=== PATIENT | male | born 1995 | race Caucasian/White ===

== ENCOUNTER 2017-01-18 19:04 | Emergency (ER) | payer OTHER ==
[~2017-01-18] VITALS: Ht 185.4 cm; Wt 86.0 kg
[~2017-01-18 19:04] MED LIST: QUET400T PO
[2017-01-18] MEDS ORDERED: ARIP400S3 IM (19:35)
[2017-01-18] MEDS ORDERED: IBUPROFEN 800 MG TABLET PO ONE (20:15)
[2017-01-18] MEDS ORDERED: SULFAMETHOX/TRIMETH DS 800-160 MG/TABLET PO ONE (20:15)
[2017-01-18 21:00] VITALS: BP 141/79
== END 2017-01-18 21:12 | disposition home or self-care (01) ==
LOC: EMS 19:08
DX: L03.317 Cellulitis of buttock (principal); L02.31 Cutaneous abscess of buttock
CPT/HCPCS: 99283

== ENCOUNTER 2017-03-18 12:30 | Emergency (ER) | payer OTHER ==
[~2017-03-18] VITALS: Ht 185.4 cm; Wt 79.5 kg
[~2017-03-18 12:30] MED LIST changes: +ARIP400S3 IM; -QUET400T PO
[2017-03-18 15:49] VITALS: BP 119/74
[2017-03-18 16:23] LABS: BASOPHILS % (AUTO) 0.6 % (0.0-2.0); HEMATOCRIT 43.7 % (41-53); HEMOGLOBIN 14.9 g/dL (13.5-17.5); LYMPHOCYTES # (AUTO) 1.7 K/uL (1.0-4.8); LYMPHOCYTES % (AUTO) 29.9 % (22.0-44.0); MEAN CORPUSCULAR HGB CONC 34.2 G/dL (31.0-37.0); MEAN CORPUSCULAR VOLUME 91 fL (80-100); MONOCYTES # (AUTO) 0.5 K/uL (0.1-1.0); MONOCYTES % (AUTO) 8.2 % (2.0-9.0); NEUTROPHILS # (AUTO) 3.4 K/uL (1.8-7.7); NEUTROPHILS % (AUTO) 60.3 % (40.0-70.0); PLATELET COUNT (AUTO) 232 K/uL (150-450); RED BLOOD CELL COUNT(AUTO) 4.82 MIL/uL (4.50-5.90); RED CELL DISTRIBUTION WIDTH 12.5 % (11.5-14.5); WHITE BLOOD COUNT (AUTO) 5.6 K/uL (4.5-11.0)
[2017-03-18 16:30] LABS: ANION GAP 7 mmol/L (8-16); CALCIUM, TOTAL 8.9 mg/dL (8.8-10.5); CARBON DIOXIDE 28 mmol/L (22-29); CHLORIDE 106 mmol/L (98-107); GLOMERULAR FILTR. RATE CALC > 60 mL/min (>60); SODIUM SERUM 141 mmol/L (136-145); UREA NITROGEN, BLOOD 7 mg/dL (7-18)
[2017-03-18 16:36] LABS: ALANINE AMINOTRANSFERASE 58 U/L (12-78); ALBUMIN 4.2 g/dL (3.4-5.0); ASPARTATE AMINOTRANSFERASE 64 U/L (15-37); BILIRUBIN,TOTAL 0.7 mg/dL (0.1-1.0); TOTAL PROTEIN, SERUM 7.5 g/dL (6.4-8.2)
== END 2017-03-18 16:22 | disposition home or self-care (01) ==
LOC: EMS 12:33
DX: F12.10 Cannabis abuse, uncomplicated (principal); F20.9 Schizophrenia, unspecified
CPT/HCPCS: 99284

== ENCOUNTER 2017-05-19 17:41 | Emergency (ER) | payer OTHER ==
[~2017-05-19] VITALS: Ht 185.4 cm; Wt 77.3 kg
[2017-05-19] MEDS ORDERED: PERMETHRIN 1% 60 ML LOTION TP ONE (20:30)
[2017-05-19 20:49] VITALS: BP 118/61
== END 2017-05-19 20:50 | disposition home or self-care (01) ==
LOC: EMS 17:42
DX: B86 Scabies (principal)
CPT/HCPCS: 99283

== ENCOUNTER 2017-05-25 21:56 | Emergency (ER) | payer OTHER ==
[~2017-05-25] VITALS: Ht 185.4 cm; Wt 185.0 kg
[2017-05-25 22:01] VITALS: BP 115/81
== END 2017-05-25 22:42 | disposition left against medical advice (07) ==
LOC: EMS 21:57
DX: Z00.8 Encounter for other general examination (principal); F20.9 Schizophrenia, unspecified; Z53.21 Procedure and treatment not carried out due to patient leaving prior to being seen by health care provider

== ENCOUNTER 2017-06-07 08:48 | Inpatient (IN) | payer MEDICAID, OTHER ==
[~2017-06-07] VITALS: Ht 185.4 cm; Wt 67.2 kg
[2017-06-07 11:07] LABS: BASOPHILS # (AUTO) 0.02 K/uL (0.00-0.20); BASOPHILS % (AUTO) 0.3 % (0.0-2.0); EOSINOPHILS # (AUTO) 0.29 K/uL (0.00-0.70); EOSINOPHILS % (AUTO) 4.44 % (1.0-6.0); HEMATOCRIT 42.6 % (41-53); HEMOGLOBIN 14.5 g/dL (13.5-17.5); LYMPHOCYTES # (AUTO) 1.8 K/uL (1.0-4.8); LYMPHOCYTES % (AUTO) 28.2 % (22.0-44.0); MEAN CORPUSCULAR HEMOGLOBIN 30.9 pg (26.0-34.0); MEAN CORPUSCULAR HGB CONC 33.9 G/dL (31.0-37.0); MEAN CORPUSCULAR VOLUME 91 fL (80-100); MONOCYTES # (AUTO) 0.6 K/uL (0.1-1.0); MONOCYTES % (AUTO) 8.6 % (2.0-9.0); NEUTROPHILS # (AUTO) 3.8 K/uL (1.8-7.7); NEUTROPHILS % (AUTO) 58.5 % (40.0-70.0); PLATELET COUNT (AUTO) 238 K/uL (150-450); RED BLOOD CELL COUNT(AUTO) 4.68 MIL/uL (4.50-5.90); RED CELL DISTRIBUTION WIDTH 13.1 % (11.5-14.5)
[2017-06-07 11:23] LABS: ANION GAP 9 mmol/L (8-16); CALCIUM, TOTAL 8.5 mg/dL (8.8-10.5); CARBON DIOXIDE 26 mmol/L (22-29); CHLORIDE 107 mmol/L (98-107); CREATININE 0.82 mg/dL (0.60-1.30); GLOMERULAR FILTR. RATE CALC > 60 mL/min (>60); GLUCOSE,RANDOM 84 mg/dL (70-110); POTASSIUM 4.1 mmol/L (3.5-5.1); SODIUM SERUM 142 mmol/L (136-145); UREA NITROGEN, BLOOD 13 mg/dL (7-18)
[2017-06-07 11:26] LABS: ALANINE AMINOTRANSFERASE 30 U/L (12-78); ALBUMIN 4.1 g/dL (3.4-5.0); ALKALINE PHOSPHATASE 100 U/L (46-116); ASPARTATE AMINOTRANSFERASE 19 U/L (15-37); BILIRUBIN,TOTAL 0.6 mg/dL (0.1-1.0); TOTAL PROTEIN, SERUM 7.2 g/dL (6.4-8.2)
[2017-06-07] MEDS ORDERED: BACITRACIN 0.9 GM PACKET OINTMENT TP ONE (11:45)
[2017-06-07] MEDS ORDERED: ZOLPIDEM TARTRATE 10 MG TABLET PO PRN (12:15)
[2017-06-07] MEDS ORDERED: HALOPERIDOL 5 MG TABLET PO ONE (12:30)
[2017-06-07] MEDS ORDERED: LORazepam 2 MG TABLET PO ONE (12:30)
[2017-06-07 13:26] LABS: AMPHET/METH SCREEN,URINE NEGATIVE (NEGATIVE); BARBITURATE SCREEN, URINE NEGATIVE (NEGATIVE); BENZODIAZEPINES SCREEN,URINE NEGATIVE (NEGATIVE); CANNABINOID SCREEN,URINE NEGATIVE (NEGATIVE); COCAINE SCREEN,URINE NEGATIVE (NEGATIVE); METHADONE SCREEN, URINE NEGATIVE (NEGATIVE); OPIATE SCREEN,URINE NEGATIVE (NEGATIVE)
[2017-06-07 13:27] LABS: PHENCYCLIDINE SCREEN,URINE NEGATIVE (NEGATIVE)
[2017-06-07 14:52] VITALS: BP 115/87
[2017-06-07 14:54] VITALS: BP 115/87
[2017-06-07] MEDS ORDERED: PNEUMOCOCCAL VACCINE POLYVALENT 0.5 ML VIAL [PPSV23] IM ONE (19:00)
[2017-06-07] MEDS ORDERED: INFLUENZA VIRUS VACCINE QVS 2017-18 (3YR+)/PF 60 MCG/0.5 ML SYRINGE IM ONE (19:00)
[2017-06-07] MEDS ORDERED: IBUPROFEN 400 MG TABLET PO PRN (20:30)
[2017-06-07] MEDS ORDERED: ACETAMINOPHEN 325 MG TABLET PO PRN (20:30)
[2017-06-08 07:17] VITALS: BP 108/76
[2017-06-08 08:42] VITALS: BP 128/74
[2017-06-08 08:55] LABS: CHOL/HDL RATIO 2.3 (4.2-7.3); THYROID STIMULATING HORMONE 0.36 uIU/mL (0.36-3.74)
[2017-06-08 09:10] LABS: HEMOGLOBIN A1C 4.9 % (4.5-6.2)
[2017-06-08] MEDS: LORazepam 2 MG TABLET PO PRN ×2 (11:24→20:13)
[2017-06-08] MEDS: HALOPERIDOL 5 MG TABLET PO PRN ×2 (11:24→20:13)
[2017-06-08] MEDS ORDERED: PETROLATUM,WHITE 71 GM JELLY TP PRN (16:45)
[2017-06-08] MEDS ORDERED: MAGNESIUM HYDROXIDE SUSPENSION 30 ML UDCUP PO PRN (16:45)
[2017-06-08] MEDS ORDERED: MAG HYDROX/AL HYDROX/SIMETH ES 30 ML SUSPENSION UDCUP PO PRN (16:45)
[2017-06-08] MEDS ORDERED: BACITRACIN 28.4 GM OINTMENT TP PRN (16:45)
[2017-06-08] MEDS ORDERED: ONDANSETRON HCL 4 MG TABLET PO PRN (16:45)
[2017-06-08] MEDS ORDERED: BENZOCAINE/MENTHOL LOZENGE [8 LOZENGES/PACKET] MM PRN (16:45)
[2017-06-08] MEDS ORDERED: CloNIDine HCL 0.1 MG TABLET PO PRN (16:45)
[2017-06-08] MEDS ORDERED: ALBUTEROL SULFATE HFA 90 MCG/PUFF 8 GM INHALER IH PRN (16:45)
[2017-06-08] MEDS ORDERED: LOPERAMIDE HCL 2 MG CAPSULE PO PRN (16:45)
[2017-06-08 17:00] VITALS: BP 129/84
[2017-06-08] MEDS ORDERED: HYDROCORTISONE 1% 30 GM OINTMENT TP PRN (19:45)
[2017-06-09] MEDS: ARIPiprazole 15 MG TABLET PO SCH (08:50)
[2017-06-09] MEDS: LORazepam 2 MG TABLET PO PRN ×2 (08:50→16:10)
[2017-06-09] MEDS: OMEPRAZOLE 20 MG CAPSULE PO SCH (08:50)
[2017-06-09 08:57] VITALS: BP 121/94
[2017-06-09] MEDS ORDERED: DOCUSATE SODIUM 100 MG CAPSULE PO PRN (09:00)
[2017-06-09] MEDS ORDERED: DOCUSATE SODIUM 100 MG CAPSULE PO SCH (09:00)
[2017-06-09] MEDS: HALOPERIDOL 5 MG TABLET PO PRN (16:11)
[2017-06-09 16:32] VITALS: BP 129/87
[2017-06-10 01:32] VITALS: BP 134/87
[2017-06-10] MEDS: ARIPiprazole 15 MG TABLET PO SCH (08:05)
[2017-06-10] MEDS: OMEPRAZOLE 20 MG CAPSULE PO SCH (08:06)
[2017-06-10] MEDS ORDERED: ARIP15TA2 PO ×2 (08:27→08:48)
[2017-06-10] MEDS ORDERED: VITAD1000 PO (08:49)
[2017-06-10] MEDS ORDERED: OMEP20 PO (08:49)
[2017-06-10] MEDS ORDERED: CHOLECALCIFEROL (VIT D3) 1,000 UNITS TABLET PO SCH (09:00)
[2017-06-10 09:58] VITALS: BP 123/54
== END 2017-06-10 10:45 | disposition home or self-care (01) | DRG 750 ==
LOC: EMS 08:49 → 3EI 13:22
PROVIDERS: ADMIT Psychiatry & Neurology Child & Adolescent Psychiatry; ATTEND Psychiatry & Neurology Child & Adolescent Psychiatry
DX: F20.0 Paranoid schizophrenia (principal); E55.9 Vitamin D deficiency, unspecified; F41.9 Anxiety disorder, unspecified; F12.10 Cannabis abuse, uncomplicated; G47.00 Insomnia, unspecified; K59.00 Constipation, unspecified; Z28.21 Immunization not carried out because of patient refusal
CPT/HCPCS: 82306; 83036; 84443; 90471; 99285; G0480

== ENCOUNTER 2017-06-21 07:54 | Inpatient (IN) | payer MEDICAID, OTHER ==
[~2017-06-21] VITALS: Ht 185.4 cm; Wt 69.9 kg
[~2017-06-21 07:54] MED LIST changes: +ARIP15TA2 PO; -ARIP400S3 IM; +OMEP20 PO; +VITAD1000 PO
[2017-06-21] MEDS ORDERED: HALOPERIDOL 5 MG TABLET PO ONE (08:30)
[2017-06-21] MEDS ORDERED: LORazepam 2 MG TABLET PO ONE (08:30)
[2017-06-21 08:46] LABS: AMPHET/METH SCREEN,URINE NEGATIVE (NEGATIVE); BARBITURATE SCREEN, URINE NEGATIVE (NEGATIVE); BENZODIAZEPINES SCREEN,URINE NEGATIVE (NEGATIVE); CANNABINOID SCREEN,URINE POSITIVE (NEGATIVE); COCAINE SCREEN,URINE NEGATIVE (NEGATIVE); METHADONE SCREEN, URINE NEGATIVE (NEGATIVE); OPIATE SCREEN,URINE NEGATIVE (NEGATIVE)
[2017-06-21 08:51] LABS: BASOPHILS # (AUTO) 0.03 K/uL (0.00-0.20); BASOPHILS % (AUTO) 0.5 % (0.0-2.0); EOSINOPHILS # (AUTO) 0.18 K/uL (0.00-0.70); EOSINOPHILS % (AUTO) 2.45 % (1.0-6.0); HEMATOCRIT 47.4 % (41-53); HEMOGLOBIN 16.2 g/dL (13.5-17.5); LYMPHOCYTES # (AUTO) 1.4 K/uL (1.0-4.8); LYMPHOCYTES % (AUTO) 19.4 % (22.0-44.0); MEAN CORPUSCULAR HEMOGLOBIN 31.3 pg (26.0-34.0); MEAN CORPUSCULAR HGB CONC 34.1 G/dL (31.0-37.0); MEAN CORPUSCULAR VOLUME 92 fL (80-100); MONOCYTES # (AUTO) 0.5 K/uL (0.1-1.0); MONOCYTES % (AUTO) 6.2 % (2.0-9.0); NEUTROPHILS # (AUTO) 5.3 K/uL (1.8-7.7); NEUTROPHILS % (AUTO) 71.5 % (40.0-70.0); PLATELET COUNT (AUTO) 310 K/uL (150-450); RED BLOOD CELL COUNT(AUTO) 5.16 MIL/uL (4.50-5.90)
[2017-06-21 08:53] LABS: PHENCYCLIDINE SCREEN,URINE NEGATIVE (NEGATIVE)
[2017-06-21 08:57] LABS: ANION GAP 10 mmol/L (8-16); CALCIUM, TOTAL 9.3 mg/dL (8.8-10.5); CARBON DIOXIDE 28 mmol/L (22-29); CHLORIDE 102 mmol/L (98-107); CREATININE 0.94 mg/dL (0.60-1.30); GLOMERULAR FILTR. RATE CALC > 60 mL/min (>60); GLUCOSE,RANDOM 85 mg/dL (70-110); POTASSIUM 3.8 mmol/L (3.5-5.1); SODIUM SERUM 140 mmol/L (136-145); UREA NITROGEN, BLOOD 21 mg/dL (7-18)
[2017-06-21 09:03] LABS: ALANINE AMINOTRANSFERASE 42 U/L (12-78); ALBUMIN 4.8 g/dL (3.4-5.0); ALKALINE PHOSPHATASE 114 U/L (46-116); ASPARTATE AMINOTRANSFERASE 28 U/L (15-37); BILIRUBIN,TOTAL 0.7 mg/dL (0.1-1.0); TOTAL PROTEIN, SERUM 8.6 g/dL (6.4-8.2)
[2017-06-21 14:27] VITALS: BP 116/76
[2017-06-21] MEDS ORDERED: INFLUENZA VIRUS VACCINE QVS 2017-18 (3YR+)/PF 60 MCG/0.5 ML SYRINGE IM ONE (15:00)
[2017-06-22 05:00] VITALS: BP 122/77
[2017-06-22] MEDS: LORazepam 2 MG TABLET PO PRN ×2 (07:33→16:57)
[2017-06-22] MEDS: HALOPERIDOL 5 MG TABLET PO PRN ×2 (07:33→16:57)
[2017-06-22 08:08] VITALS: BP 107/68
[2017-06-22 08:59] LABS: CHOL/HDL RATIO 2.5 (4.2-7.3)
[2017-06-22 09:37] VITALS: BP 125/83
[2017-06-22] MEDS: ARIPiprazole 15 MG TABLET PO SCH (10:06)
[2017-06-22 16:00] VITALS: BP 116/66
[2017-06-22] MEDS ORDERED: ACETAMINOPHEN 325 MG TABLET PO PRN (20:45)
[2017-06-22] MEDS ORDERED: IBUPROFEN 400 MG TABLET PO PRN (20:45)
[2017-06-23 04:41] VITALS: BP 109/85
[2017-06-23 08:16] VITALS: BP 115/63
[2017-06-23] MEDS: OMEPRAZOLE 20 MG CAPSULE PO SCH (08:45)
[2017-06-23] MEDS: ARIPiprazole 15 MG TABLET PO SCH (08:45)
[2017-06-23] MEDS: CHOLECALCIFEROL (VIT D3) 1,000 UNITS TABLET PO SCH (08:45)
[2017-06-23] MEDS: LORazepam 2 MG TABLET PO PRN ×2 (08:45→16:26)
[2017-06-23] MEDS: HALOPERIDOL 5 MG TABLET PO PRN ×2 (09:09→16:26)
[2017-06-23 16:00] VITALS: BP 130/75
[2017-06-23] MEDS: NYSTATIN 30 GM OINTMENT TP SCH ×2 (17:00→20:58)
[2017-06-24 01:17] VITALS: BP 128/90
[2017-06-24 08:13] VITALS: BP 113/75
[2017-06-24] MEDS: ARIPiprazole 15 MG TABLET PO SCH (08:56)
[2017-06-24] MEDS: OMEPRAZOLE 20 MG CAPSULE PO SCH (08:56)
[2017-06-24] MEDS: CHOLECALCIFEROL (VIT D3) 1,000 UNITS TABLET PO SCH (08:56)
[2017-06-24] MEDS: NYSTATIN 30 GM OINTMENT TP SCH ×2 (08:56→16:31)
[2017-06-24] MEDS: LORazepam 2 MG TABLET PO PRN ×2 (08:57→16:31)
[2017-06-24] MEDS: HALOPERIDOL 5 MG TABLET PO PRN ×2 (09:42→16:31)
[2017-06-24 16:00] VITALS: BP 116/70
[2017-06-25 00:56] VITALS: BP 117/80
[2017-06-25 08:06] VITALS: BP 129/77
[2017-06-25] MEDS: NYSTATIN 30 GM OINTMENT TP SCH ×2 (08:27→16:30)
[2017-06-25] MEDS: ARIPiprazole 15 MG TABLET PO SCH (08:27)
[2017-06-25] MEDS: OMEPRAZOLE 20 MG CAPSULE PO SCH (08:27)
[2017-06-25] MEDS: CHOLECALCIFEROL (VIT D3) 1,000 UNITS TABLET PO SCH (08:27)
[2017-06-25 16:06] VITALS: BP 129/81
[2017-06-25] MEDS: LORazepam 2 MG TABLET PO PRN ×2 (16:29→20:42)
[2017-06-25] MEDS: HALOPERIDOL 5 MG TABLET PO PRN ×2 (16:29→20:42)
[2017-06-25] MEDS: ZOLPIDEM TARTRATE 10 MG TABLET PO PRN (20:42)
[2017-06-26 05:34] VITALS: BP 124/80
[2017-06-26] MEDS: CHOLECALCIFEROL (VIT D3) 1,000 UNITS TABLET PO SCH (09:06)
[2017-06-26] MEDS: OMEPRAZOLE 20 MG CAPSULE PO SCH (09:06)
[2017-06-26] MEDS: ARIPiprazole 15 MG TABLET PO SCH (09:06)
[2017-06-26] MEDS: NYSTATIN 30 GM OINTMENT TP SCH ×2 (09:06→17:11)
[2017-06-26 09:43] VITALS: BP 128/75
[2017-06-26] MEDS ORDERED: DiphenhydrAMINE HCL 50 MG/ML VIAL ONE (14:34)
[2017-06-26] MEDS ORDERED: HALOPERIDOL LACTATE 5 MG/ML VIAL ONE (14:34)
[2017-06-26] MEDS ORDERED: LORazepam 2 MG/ML VIAL ONE (14:34)
[2017-06-26] MEDS ORDERED: LORazepam 2 MG/ML VIAL IM ONE (15:00)
[2017-06-26] MEDS ORDERED: HALOPERIDOL LACTATE 5 MG/ML VIAL IM ONE (15:00)
[2017-06-26] MEDS ORDERED: DiphenhydrAMINE HCL 50 MG/ML VIAL IM ONE (15:00)
[2017-06-26 16:00] VITALS: BP 110/67
[2017-06-27] MEDS: LORazepam 2 MG TABLET PO PRN ×3 (03:23→16:54)
[2017-06-27] MEDS: HALOPERIDOL 5 MG TABLET PO PRN ×3 (03:23→16:54)
[2017-06-27 06:54] VITALS: BP 121/74
[2017-06-27 08:11] VITALS: BP 131/66
[2017-06-27] MEDS: ARIPiprazole 15 MG TABLET PO SCH (08:50)
[2017-06-27] MEDS: CHOLECALCIFEROL (VIT D3) 1,000 UNITS TABLET PO SCH (08:50)
[2017-06-27] MEDS: OMEPRAZOLE 20 MG CAPSULE PO SCH (08:50)
[2017-06-27] MEDS: NYSTATIN 30 GM OINTMENT TP SCH ×2 (08:53→16:54)
[2017-06-27 16:27] VITALS: BP 108/67
[2017-06-28] MEDS: ZOLPIDEM TARTRATE 10 MG TABLET PO PRN ×2 (02:27→23:40)
[2017-06-28] MEDS: LORazepam 2 MG TABLET PO PRN ×3 (02:27→14:53)
[2017-06-28 05:30] VITALS: BP 115/71
[2017-06-28 08:11] VITALS: BP 124/81
[2017-06-28] MEDS: CHOLECALCIFEROL (VIT D3) 1,000 UNITS TABLET PO SCH (08:55)
[2017-06-28] MEDS: OMEPRAZOLE 20 MG CAPSULE PO SCH (08:55)
[2017-06-28] MEDS: HALOPERIDOL 5 MG TABLET PO PRN ×2 (08:55→14:53)
[2017-06-28] MEDS: ARIPiprazole 15 MG TABLET PO SCH (08:55)
[2017-06-28] MEDS: NYSTATIN 30 GM OINTMENT TP SCH ×2 (08:57→16:46)
[2017-06-28] MEDS ORDERED: DiphenhydrAMINE HCL 50 MG/ML VIAL IM ONE (15:30)
[2017-06-28] MEDS ORDERED: LORazepam 2 MG/ML VIAL IM ONE (15:30)
[2017-06-28] MEDS ORDERED: HALOPERIDOL LACTATE 5 MG/ML VIAL IM ONE (15:30)
[2017-06-28 16:00] VITALS: BP 118/74
[2017-06-29 01:21] VITALS: BP 133/63
[2017-06-29 08:29] VITALS: BP 135/71
[2017-06-29] MEDS: ARIPiprazole 15 MG TABLET PO SCH (09:08)
[2017-06-29] MEDS: CHOLECALCIFEROL (VIT D3) 1,000 UNITS TABLET PO SCH (09:09)
[2017-06-29] MEDS: LORazepam 2 MG TABLET PO PRN ×3 (09:09→17:26)
[2017-06-29] MEDS: HALOPERIDOL 5 MG TABLET PO PRN ×3 (09:09→17:26)
[2017-06-29] MEDS: OMEPRAZOLE 20 MG CAPSULE PO SCH (09:09)
[2017-06-29] MEDS: NYSTATIN 30 GM OINTMENT TP SCH ×2 (09:09→17:06)
[2017-06-29 16:00] VITALS: BP 117/66
[2017-06-30 01:47] VITALS: BP 115/66
[2017-06-30] MEDS: NYSTATIN 30 GM OINTMENT TP SCH ×2 (09:00→16:13)
[2017-06-30] MEDS ORDERED: LORazepam 2 MG/ML VIAL ONE (09:29)
[2017-06-30] MEDS ORDERED: HALOPERIDOL LACTATE 5 MG/ML VIAL ONE (09:30)
[2017-06-30] MEDS ORDERED: DiphenhydrAMINE HCL 50 MG/ML VIAL ONE (09:30)
[2017-06-30] MEDS: CHOLECALCIFEROL (VIT D3) 1,000 UNITS TABLET PO SCH (09:35)
[2017-06-30] MEDS: OMEPRAZOLE 20 MG CAPSULE PO SCH (09:35)
[2017-06-30] MEDS: ARIPiprazole 15 MG TABLET PO SCH (09:35)
[2017-06-30] MEDS ORDERED: LORazepam 2 MG/ML VIAL IM ONE (09:45)
[2017-06-30] MEDS ORDERED: HALOPERIDOL LACTATE 5 MG/ML VIAL IM ONE (09:45)
[2017-06-30] MEDS ORDERED: DiphenhydrAMINE HCL 50 MG/ML VIAL IM ONE (09:45)
[2017-06-30 09:48] VITALS: BP 131/77
[2017-06-30 10:26] VITALS: BP 109/61
[2017-06-30] MEDS: LORazepam 2 MG TABLET PO PRN (16:13)
[2017-06-30 16:57] VITALS: BP 133/78
[2017-07-01] MEDS: ZOLPIDEM TARTRATE 10 MG TABLET PO PRN ×2 (00:01→20:27)
[2017-07-01 05:26] VITALS: BP 120/75
[2017-07-01 08:00] VITALS: BP 144/69
[2017-07-01] MEDS: OMEPRAZOLE 20 MG CAPSULE PO SCH (09:34)
[2017-07-01] MEDS: CHOLECALCIFEROL (VIT D3) 1,000 UNITS TABLET PO SCH (09:34)
[2017-07-01] MEDS: NYSTATIN 30 GM OINTMENT TP SCH ×2 (09:34→16:40)
[2017-07-01] MEDS: ARIPiprazole 15 MG TABLET PO SCH (09:34)
[2017-07-01] MEDS: NICOTINE 7 MG/24 HOUR PATCH TD SCH (12:07)
[2017-07-01] MEDS: LORazepam 2 MG TABLET PO PRN (16:40)
[2017-07-01] MEDS: HALOPERIDOL 5 MG TABLET PO PRN (16:40)
[2017-07-01 16:47] VITALS: BP 111/71
[2017-07-02] VITALS (8 sets, daily range): BP systolic 115–146; BP diastolic 60–82
[2017-07-02] MEDS: HALOPERIDOL 5 MG TABLET PO PRN (02:07)
[2017-07-02] MEDS: LORazepam 2 MG TABLET PO PRN ×2 (02:07→17:20)
[2017-07-02] MEDS: NYSTATIN 30 GM OINTMENT TP SCH ×2 (09:00→17:20)
[2017-07-02] MEDS: CHOLECALCIFEROL (VIT D3) 1,000 UNITS TABLET PO SCH (11:13)
[2017-07-02] MEDS: ARIPiprazole 15 MG TABLET PO SCH (11:13)
[2017-07-02] MEDS: NICOTINE 7 MG/24 HOUR PATCH TD SCH (11:14)
[2017-07-02] MEDS: OMEPRAZOLE 20 MG CAPSULE PO SCH (11:17)
[2017-07-02] MEDS ORDERED: NEOMYCIN/BACITRACIN/POLYMYXIN B 30 GM OINTMENT TP SCH (17:00)
[2017-07-02] MEDS ORDERED: NYST15PO3 TP (17:44)
[2017-07-02] MEDS ORDERED: NEOM1OIN8 TP (17:45)
[2017-07-03 04:52] VITALS: BP 132/81
== END 2017-07-03 07:52 | disposition home or self-care (01) | DRG 750 ==
LOC: EMS 07:55 → B3A 13:40
PROVIDERS: ADMIT Psychiatry & Neurology Child & Adolescent Psychiatry; ATTEND Psychiatry & Neurology Child & Adolescent Psychiatry
PROC: 3E0234Z Introduction of Serum, Toxoid and Vaccine into Muscle, Percutaneous Approach (ICD-10-PCS; principal; 2017-06-21)
DX: F20.0 Paranoid schizophrenia (principal); E55.9 Vitamin D deficiency, unspecified; F12.90 Cannabis use, unspecified, uncomplicated; K21.9 Gastro-esophageal reflux disease without esophagitis; Z79.899 Other long term (current) drug therapy; Z23 Encounter for immunization
CPT/HCPCS: 87081; 99285; G0480; J1200; J1630; J2060

== ENCOUNTER 2017-07-02 07:44 | Emergency (ER) | payer MEDICAID, OTHER ==
[~2017-07-02] VITALS: Ht 185.4 cm; Wt 81.8 kg
[2017-07-02] MEDS ORDERED: LIDOCAINE HCL 1% 10 ML VIAL INJ ONE (09:30)
[2017-07-02 09:38] VITALS: BP 120/71
[2017-07-02] MEDS ORDERED: BACITRACIN 0.9 GM PACKET OINTMENT TP ONE (09:45)
[2017-07-02] MEDS ORDERED: NYST15PO3 TP (17:44)
[2017-07-02] MEDS ORDERED: NEOM1OIN8 TP (17:45)
== END 2017-07-02 10:45 | disposition home or self-care (01) ==
LOC: EMS 07:45
DX: S01.01XA Laceration without foreign body of scalp, initial encounter (principal); W18.2XXA Fall in (into) shower or empty bathtub, initial encounter; Y93.E1 Activity, personal bathing and showering; Y92.89 Other specified places as the place of occurrence of the external cause; Y99.8 Other external cause status
CPT/HCPCS: 12002; 99283; J3490

== ENCOUNTER 2019-05-20 15:53 | Emergency (ER) | payer OTHER ==
[~2019-05-20] VITALS: Ht 180.3 cm; Wt 86.4 kg
[~2019-05-20 15:53] MED LIST changes: +CHOL100018 PO; +NEOM1OIN8 TP; +NYST15PO3 TP; -VITAD1000 PO
[2019-05-20 18:22] LABS: BASOPHILS % (AUTO) 0.5 % (0.0-2.0); HEMATOCRIT 42.4 % (41-53); HEMOGLOBIN 14.5 g/dL (13.5-17.5); LYMPHOCYTES # (AUTO) 2.5 K/uL (1.0-4.8); LYMPHOCYTES % (AUTO) 37.4 % (22.0-44.0); MEAN CORPUSCULAR HEMOGLOBIN 30.4 pg (26.0-34.0); MEAN CORPUSCULAR HGB CONC 34.1 G/dL (31.0-37.0); MEAN CORPUSCULAR VOLUME 89 fL (80-100); MONOCYTES # (AUTO) 0.5 K/uL (0.1-1.0); NEUTROPHILS # (AUTO) 3.6 K/uL (1.8-7.7); NEUTROPHILS % (AUTO) 53.1 % (40.0-70.0); PLATELET COUNT (AUTO) 261 K/uL (150-450); RED BLOOD CELL COUNT(AUTO) 4.75 MIL/uL (4.50-5.90); RED CELL DISTRIBUTION WIDTH 13.4 % (11.5-14.5)
[2019-05-20 18:34] LABS: ANION GAP 6 mmol/L (8-16); CALCIUM, TOTAL 8.6 mg/dL (8.8-10.5); CARBON DIOXIDE 31 mmol/L (22-29); CHLORIDE 103 mmol/L (98-107); CREATININE 0.95 mg/dL (0.60-1.30); GLOMERULAR FILTR. RATE CALC > 60 mL/min (>60); GLUCOSE,RANDOM 88 mg/dL (70-110); POTASSIUM 3.7 mmol/L (3.5-5.1); SODIUM SERUM 140 mmol/L (136-145)
[2019-05-20 19:03] LABS: ALANINE AMINOTRANSFERASE 20 U/L (12-78); ALBUMIN 4.3 g/dL (3.4-5.0); ALKALINE PHOSPHATASE 101 U/L (46-116); ASPARTATE AMINOTRANSFERASE 19 U/L (15-37); BILIRUBIN,TOTAL 0.4 mg/dL (0.1-1.0); CREATINE KINASE, TOTAL ONLY 275 U/L (39-308); TOTAL PROTEIN, SERUM 7.5 g/dL (6.4-8.2)
[2019-05-20 19:13] LABS: UREA NITROGEN, BLOOD 9 mg/dL (7-18)
[2019-05-20 20:15] VITALS: BP 129/87
[2019-05-20 21:14] LABS: APPEARANCE,URINE CLEAR (CLEAR); BILIRUBIN,URINE NEGATIVE (NEGATIVE); GLUCOSE, URINE (UA) NEGATIVE (NEGATIVE); KETONES,URINE NEGATIVE (NEGATIVE); LEUKOCYTE ESTERASE ,URINE NEGATIVE (NEGATIVE); NITRATE,URINE NEGATIVE (NEGATIVE); OCCULT BLOOD,URINE NEGATIVE (NEGATIVE); PH,URINE 7.5 (5.0-8.0); PROTEIN,URINE NEGATIVE (NEGATIVE); UROBILINOGEN,URINE 0.2 mg/dL (<=1.0)
[2019-05-20 21:17] LABS: AMPHET/METH SCREEN,URINE NEGATIVE (NEGATIVE); BARBITURATE SCREEN, URINE NEGATIVE (NEGATIVE); BENZODIAZEPINES SCREEN,URINE NEGATIVE (NEGATIVE); CANNABINOID SCREEN,URINE POSITIVE (NEGATIVE); COCAINE SCREEN,URINE NEGATIVE (NEGATIVE); METHADONE SCREEN, URINE NEGATIVE (NEGATIVE); OPIATE SCREEN,URINE NEGATIVE (NEGATIVE)
[2019-05-20 21:19] LABS: PHENCYCLIDINE SCREEN,URINE NEGATIVE (NEGATIVE)
[2019-05-20 21:42] LABS: BACTERIA,URINE None Seen /HPF (None Seen); RBC,URINE None Seen /HPF (0-2); WBC,URINE None Seen /HPF (0-5)
[2019-05-20 21:43] LABS: SQUAMOUS EPITHELIAL CELL,UR None Seen /LPF (None Seen)
== END 2019-05-20 20:51 | disposition home or self-care (01) ==
LOC: EMS 15:54
DX: R42 Dizziness and giddiness (principal); F20.9 Schizophrenia, unspecified; F17.210 Nicotine dependence, cigarettes, uncomplicated; F12.90 Cannabis use, unspecified, uncomplicated; Z79.899 Other long term (current) drug therapy
CPT/HCPCS: 93005

== ENCOUNTER 2020-01-29 09:04 | Emergency (ER) | payer MEDICARE, OTHER ==
[~2020-01-29] VITALS: Ht 175.3 cm; Wt 77.3 kg
[2020-01-29] MEDS ORDERED: BENZ0.5T44 PO (09:10)
[2020-01-29] MEDS ORDERED: PERTUSS(ACELL),DIPH,TET VAC/PF 0.5 ML VIAL IM ONE (10:00)
[2020-01-29 10:10] LABS: BASOPHILS % (AUTO) 0.4 % (0.0-2.0); EOSINOPHILS % (AUTO) 0.4 % (1.0-6.0); HEMATOCRIT 41.5 % (41-53); HEMOGLOBIN 14.3 g/dL (13.5-17.5); LYMPHOCYTES # (AUTO) 0.9 K/uL (1.0-4.8); LYMPHOCYTES % (AUTO) 11.6 % (22.0-44.0); MEAN CORPUSCULAR HEMOGLOBIN 31.4 pg (26.0-34.0); MEAN CORPUSCULAR HGB CONC 34.4 G/dL (31.0-37.0); MEAN CORPUSCULAR VOLUME 91 fL (80-100); MONOCYTES # (AUTO) 0.5 K/uL (0.1-1.0); MONOCYTES % (AUTO) 6.7 % (2.0-9.0); NEUTROPHILS # (AUTO) 6.5 K/uL (1.8-7.7); NEUTROPHILS % (AUTO) 80.9 % (40.0-70.0); PLATELET COUNT (AUTO) 245 K/uL (150-450); RED BLOOD CELL COUNT(AUTO) 4.54 MIL/uL (4.50-5.90); RED CELL DISTRIBUTION WIDTH 13.5 % (11.5-14.5)
[2020-01-29 10:22] LABS: ANION GAP 4 mmol/L (8-16); CALCIUM, TOTAL 8.9 mg/dL (8.8-10.5); CARBON DIOXIDE 29 mmol/L (22-29); CHLORIDE 106 mmol/L (98-107); CREATININE 0.98 mg/dL (0.60-1.30); GLOMERULAR FILTR. RATE CALC > 60 mL/min (>60); GLUCOSE,RANDOM 106 mg/dL (70-110); POTASSIUM 3.9 mmol/L (3.5-5.1); SODIUM SERUM 139 mmol/L (136-145); UREA NITROGEN, BLOOD 12 mg/dL (7-18)
[2020-01-29 10:43] VITALS: BP 126/73
[2020-01-29] MEDS ORDERED: SULFAMETHOX/TRIMETH DS 800-160 MG/TABLET PO ONE (11:15)
[2020-01-29] MEDS ORDERED: CEPHALEXIN MONOHYDRATE 500 MG CAPSULE PO ONE (11:15)
== END 2020-01-29 11:33 | disposition home or self-care (01) ==
LOC: EMS 09:11
DX: L73.9 Follicular disorder, unspecified (principal); L03.113 Cellulitis of right upper limb; F20.9 Schizophrenia, unspecified; F17.210 Nicotine dependence, cigarettes, uncomplicated; F12.90 Cannabis use, unspecified, uncomplicated
CPT/HCPCS: 90471; 90715

== ENCOUNTER 2020-04-12 10:36 | Emergency (ER) | payer MEDICARE, OTHER ==
[~2020-04-12] VITALS: Ht 180.3 cm; Wt 75.0 kg
[~2020-04-12 10:36] MED LIST changes: -ARIP15TA2 PO; +BENZ0.5T44 PO; -CHOL100018 PO; -NEOM1OIN8 TP; -NYST15PO3 TP; -OMEP20 PO
[2020-04-12 10:41] VITALS: BP 131/73
== END 2020-04-12 12:06 | disposition home or self-care (01) ==
LOC: EMS 10:54
DX: L73.9 Follicular disorder, unspecified (principal); R03.0 Elevated blood-pressure reading, without diagnosis of hypertension; F20.9 Schizophrenia, unspecified; F12.90 Cannabis use, unspecified, uncomplicated; F17.210 Nicotine dependence, cigarettes, uncomplicated
CPT/HCPCS: 99283; Z7502

== ENCOUNTER 2021-08-29 16:42 | Emergency (ER) | payer MEDICARE, OTHER ==
[~2021-08-29] VITALS: Ht 185.4 cm; Wt 79.0 kg
[~2021-08-29 16:42] MED LIST changes: +ZYPREXA
[2021-08-29] MEDS ORDERED: CEPH500C3 PO (19:59)
[2021-08-29] MEDS ORDERED: IBUPROFEN 600 MG TABLET PO ONE (20:15)
[2021-08-29 21:35] VITALS: BP 127/68
== END 2021-08-29 21:38 | disposition home or self-care (01) ==
LOC: EMS 16:42
DX: L08.9 Local infection of the skin and subcutaneous tissue, unspecified (principal); M79.644 Pain in right finger(s); F20.9 Schizophrenia, unspecified; F17.210 Nicotine dependence, cigarettes, uncomplicated
CPT/HCPCS: 99283

== ENCOUNTER 2021-11-16 16:58 | Emergency (ER) | payer MEDICARE, OTHER ==
[~2021-11-16] VITALS: Ht 185.4 cm; Wt 72.7 kg
[~2021-11-16 16:58] MED LIST changes: -BENZ0.5T44 PO; +BENZ0.5T49 PO; +CEPH-558 PO
[2021-11-16 17:03] VITALS: BP 127/75
[2021-11-16] MEDS ORDERED: LIDOCAINE/PF 1% 2 ML VIAL IM ONE (20:00)
[2021-11-16] MEDS ORDERED: CefTRIAXone SODIUM 1 GM/VIAL IM ONE (20:00)
[2021-11-16] MEDS ORDERED: BACITRACIN 0.9 GM PACKET OINTMENT TP ONE (20:00)
[2021-11-16] MEDS ORDERED: EMTRICITABINE/TENOFOVIR 200-300 MG TABLET PO ONE (20:00)
[2021-11-16] MEDS ORDERED: RALTEGRAVIR 400 MG TABLET PO ONE (20:00)
[2021-11-16] MEDS ORDERED: DOXYCYCLINE HYCLATE 100 MG TABLET PO ONE (20:00)
[2021-11-16] MEDS ORDERED: ValACYclovir HCL 500 MG TABLET PO ONE (20:15)
[2021-11-16 20:47] LABS: BASOPHILS % (AUTO) 0.5 % (0.0-2.0); EOSINOPHILS % (AUTO) 0.1 % (1.0-6.0); HEMATOCRIT 44.6 % (41-53); HEMOGLOBIN 15.2 g/dL (13.5-17.5); LYMPHOCYTES # (AUTO) 1.8 K/uL (1.0-4.8); LYMPHOCYTES % (AUTO) 18.4 % (22.0-44.0); MEAN CORPUSCULAR HEMOGLOBIN 30.3 pg (26.0-34.0); MEAN CORPUSCULAR VOLUME 89 fL (80-100); MONOCYTES # (AUTO) 0.8 K/uL (0.1-1.0); MONOCYTES % (AUTO) 7.9 % (2.0-9.0); NEUTROPHILS # (AUTO) 7.2 K/uL (1.8-7.7); NEUTROPHILS % (AUTO) 73.1 % (40.0-70.0); PLATELET COUNT (AUTO) 314 K/uL (150-450)
[2021-11-16 20:57] LABS: ANION GAP 12 mmol/L (8-16); CALCIUM, TOTAL 9.5 mg/dL (8.8-10.5); CARBON DIOXIDE 27 mmol/L (22-29); CHLORIDE 104 mmol/L (98-107); GLOMERULAR FILTR. RATE CALC > 60 mL/min (>60); GLUCOSE,RANDOM 85 mg/dL (70-110); POTASSIUM 3.7 mmol/L (3.5-5.1); SODIUM SERUM 143 mmol/L (136-145); UREA NITROGEN, BLOOD 16 mg/dL (7-18)
[2021-11-16 21:03] LABS: ALANINE AMINOTRANSFERASE 22 U/L (12-78); ALBUMIN 4.6 g/dL (3.4-5.0); ALKALINE PHOSPHATASE 116 U/L (46-116); ASPARTATE AMINOTRANSFERASE 14 U/L (15-37); BILIRUBIN,TOTAL 1.1 mg/dL (0.1-1.0)
[2021-11-16] MEDS ORDERED: PENICILLIN G BENZATHINE LA 2,400,000 UNITS/4 ML SYRINGE IM ONE (21:45)
[2021-11-16] MEDS ORDERED: RALT400T PO (21:53)
[2021-11-16] MEDS ORDERED: VALA500T42 PO (21:53)
[2021-11-16] MEDS ORDERED: DOXY-354 PO (21:53)
[2021-11-16] MEDS ORDERED: TRUVT PO (21:53)
[2021-11-18 04:06] LABS: HIV 1-2 SCREEN 4TH GEN W/RFLX Non Reactive (Non Reactive)
== END 2021-11-16 22:45 | disposition home or self-care (01) ==
LOC: EMS 17:05
DX: A53.9 Syphilis, unspecified (principal); F20.9 Schizophrenia, unspecified; F17.210 Nicotine dependence, cigarettes, uncomplicated; Z98.890 Other specified postprocedural states
CPT/HCPCS: 36415; 80053; 85025; 86592; 86593; 86780; 87389; 96372; 99284; J0561; J0696; J3490

== ENCOUNTER 2021-12-07 17:05 | Emergency (ER) | payer MEDICARE, OTHER ==
[~2021-12-07] VITALS: Ht 185.4 cm; Wt 77.3 kg
[~2021-12-07 17:05] MED LIST changes: +DOXY-354 PO; +RALT400T PO; +TRUVT PO; +VALA500T42 PO
[2021-12-07 17:06] VITALS: BP 128/72
[2021-12-07] MEDS ORDERED: PENICILLIN G BENZATHINE LA 2,400,000 UNITS/4 ML SYRINGE IM ONE (17:30)
== END 2021-12-07 18:02 | disposition home or self-care (01) ==
LOC: EMS 17:06
DX: A53.9 Syphilis, unspecified (principal); F20.9 Schizophrenia, unspecified; F17.210 Nicotine dependence, cigarettes, uncomplicated; Z86.19 Personal history of other infectious and parasitic diseases; Z98.890 Other specified postprocedural states; Z29.8 Encounter for other specified prophylactic measures
CPT/HCPCS: 96372; 99283; J0561

== ENCOUNTER 2022-02-13 09:01 | Emergency (ER) | payer MEDICARE, OTHER ==
[~2022-02-13] VITALS: Ht 185.4 cm; Wt 84.1 kg
[~2022-02-13 09:01] MED LIST changes: +EMTR1TAB53 PO; -TRUVT PO
[2022-02-13 10:06] VITALS: BP 125/84
[2022-02-13] MEDS ORDERED: OLAN5TAB52 PO (10:53)
[2022-02-13] MEDS ORDERED: PROP10TA73 PO (10:53)
== END 2022-02-13 11:24 | disposition home or self-care (01) ==
LOC: EMS 11:10
DX: S00.96XA Insect bite (nonvenomous) of unspecified part of head, initial encounter (principal); R07.89 Other chest pain; A53.9 Syphilis, unspecified; L98.9 Disorder of the skin and subcutaneous tissue, unspecified; F17.210 Nicotine dependence, cigarettes, uncomplicated; F20.9 Schizophrenia, unspecified; W57.XXXA Bitten or stung by nonvenomous insect and other nonvenomous arthropods, initial encounter; Y93.89 Activity, other specified; Y92.89 Other specified places as the place of occurrence of the external cause; Y99.8 Other external cause status
CPT/HCPCS: 71045; 93005; 99283

== ENCOUNTER 2022-02-22 17:36 | Emergency (ER) | payer MEDICARE, OTHER ==
[~2022-02-22] VITALS: Ht 182.9 cm; Wt 77.0 kg
[~2022-02-22 17:36] MED LIST changes: -CEPH-558 PO; -DOXY-354 PO; +OLAN5TAB52 PO; +PROP10TA73 PO
[2022-02-22 22:06] VITALS: BP 123/71
[2022-02-22] MEDS ORDERED: LIDOCAINE/PF 1% 2 ML VIAL IM ONE (22:15)
[2022-02-22] MEDS ORDERED: CefTRIAXone SODIUM 1 GM/VIAL IM ONE (22:15)
[2022-02-22] MEDS ORDERED: AZITHROMYCIN 500 MG TABLET PO ONE (22:15)
== END 2022-02-22 22:55 | disposition home or self-care (01) ==
LOC: EMS 17:38
DX: F41.9 Anxiety disorder, unspecified (principal); F20.9 Schizophrenia, unspecified; F17.210 Nicotine dependence, cigarettes, uncomplicated; Z86.19 Personal history of other infectious and parasitic diseases; Z98.890 Other specified postprocedural states; Z20.2 Contact with and (suspected) exposure to infections with a predominantly sexual mode of transmission
CPT/HCPCS: 99283; 96372; J0696; J3490; Q9967

== ENCOUNTER 2022-04-02 08:18 | Emergency (ER) | payer MEDICARE, OTHER ==
[~2022-04-02] VITALS: Ht 185.4 cm; Wt 82.0 kg
[2022-04-02] MEDS ORDERED: SODIUM CHLORIDE 0.9% 1,000 ML IV ONE (10:30)
[2022-04-02] MEDS ORDERED: METOCLOPRAMIDE HCL 5 MG/ML 2 ML VIAL IVP ONE (10:30)
[2022-04-02 10:44] LABS: BASOPHILS % (AUTO) 0.6 % (0.0-2.0); EOSINOPHILS % (AUTO) 0.3 % (1.0-6.0); HEMATOCRIT 51.5 % (41-53); HEMOGLOBIN 17.4 g/dL (13.5-17.5); LYMPHOCYTES # (AUTO) 0.4 K/uL (1.0-4.8); LYMPHOCYTES % (AUTO) 2.2 % (22.0-44.0); MEAN CORPUSCULAR HEMOGLOBIN 31.2 pg (26.0-34.0); MEAN CORPUSCULAR HGB CONC 33.8 G/dL (31.0-37.0); MEAN CORPUSCULAR VOLUME 92 fL (80-100); MONOCYTES # (AUTO) 1.1 K/uL (0.1-1.0); MONOCYTES % (AUTO) 6.6 % (2.0-9.0); NEUTROPHILS # (AUTO) 15.4 K/uL (1.8-7.7); PLATELET COUNT (AUTO) 310 K/uL (150-450); RED BLOOD CELL COUNT(AUTO) 5.57 MIL/uL (4.50-5.90); RED CELL DISTRIBUTION WIDTH 13.5 % (11.5-14.5)
[2022-04-02 10:46] LABS: NEUTROPHILS % (AUTO) 90.3 % (40.0-70.0)
[2022-04-02 10:53] LABS: ANION GAP 5 mmol/L (8-16); CALCIUM, TOTAL 9.1 mg/dL (8.8-10.5); CARBON DIOXIDE 32 mmol/L (22-29); CHLORIDE 101 mmol/L (98-107); CREATININE 0.91 mg/dL (0.60-1.30); GLOMERULAR FILTR. RATE CALC > 60 mL/min (>60); GLUCOSE,RANDOM 107 mg/dL (70-110); POTASSIUM 3.7 mmol/L (3.5-5.1); SODIUM SERUM 138 mmol/L (136-145); UREA NITROGEN, BLOOD 8 mg/dL (7-18)
[2022-04-02 10:58] LABS: ALANINE AMINOTRANSFERASE 57 U/L (12-78); ALBUMIN 4.5 g/dL (3.4-5.0); ALKALINE PHOSPHATASE 116 U/L (46-116); ASPARTATE AMINOTRANSFERASE 33 U/L (15-37); BILIRUBIN,TOTAL 0.4 mg/dL (0.1-1.0); LIPASE 59 U/L (73-393)
[2022-04-02 13:11] VITALS: BP 127/79
[2022-04-02] MEDS ORDERED: ONDA-104 PO (16:12)
== END 2022-04-02 16:49 | disposition home or self-care (01) ==
LOC: EMS 08:18
DX: R10.9 Unspecified abdominal pain (principal); F12.90 Cannabis use, unspecified, uncomplicated; F15.10 Other stimulant abuse, uncomplicated; F17.210 Nicotine dependence, cigarettes, uncomplicated
CPT/HCPCS: 99285; 74176; 96374; 96361; 80053; 83690; 85025; 36415; 74022; 93005; G0480; J2765; J7030

== ENCOUNTER 2022-09-27 15:27 | Emergency (ER) | payer MEDICARE, OTHER ==
[~2022-09-27] VITALS: Ht 185.4 cm; Wt 84.1 kg
[~2022-09-27 15:27] MED LIST changes: +ONDA-104 PO
[2022-09-27] MEDS ORDERED: KETOROLAC TROMETHAMINE 60 MG/2 ML VIAL IM ONE (17:00)
[2022-09-27 17:22] LABS: BASOPHILS % (AUTO) 0.2 % (0.0-2.0); EOSINOPHILS % (AUTO) 0.3 % (1.0-6.0); HEMATOCRIT 46.1 % (41-53); HEMOGLOBIN 15.6 g/dL (13.5-17.5); LYMPHOCYTES # (AUTO) 0.6 K/uL (1.0-4.8); LYMPHOCYTES % (AUTO) 10.7 % (22.0-44.0); MEAN CORPUSCULAR HEMOGLOBIN 30.3 pg (26.0-34.0); MEAN CORPUSCULAR HGB CONC 33.8 G/dL (31.0-37.0); MEAN CORPUSCULAR VOLUME 90 fL (80-100); MONOCYTES # (AUTO) 0.5 K/uL (0.1-1.0); MONOCYTES % (AUTO) 8.9 % (2.0-9.0); NEUTROPHILS # (AUTO) 4.8 K/uL (1.8-7.7); NEUTROPHILS % (AUTO) 79.9 % (40.0-70.0); PLATELET COUNT (AUTO) 276 K/uL (150-450); RED BLOOD CELL COUNT(AUTO) 5.14 MIL/uL (4.50-5.90); RED CELL DISTRIBUTION WIDTH 13.2 % (11.5-14.5)
[2022-09-27 17:49] LABS: ANION GAP 8 mmol/L (8-16); CALCIUM, TOTAL 8.5 mg/dL (8.8-10.5); CARBON DIOXIDE 28 mmol/L (22-29); CHLORIDE 101 mmol/L (98-107); CREATININE 0.99 mg/dL (0.60-1.30); GLOMERULAR FILTR. RATE CALC > 60 mL/min (>60); GLUCOSE,RANDOM 100 mg/dL (70-110); POTASSIUM 3.9 mmol/L (3.5-5.1); SODIUM SERUM 137 mmol/L (136-145); UREA NITROGEN, BLOOD 10 mg/dL (7-18)
[2022-09-27 17:54] LABS: ALANINE AMINOTRANSFERASE 21 U/L (12-78); ALBUMIN 4.1 g/dL (3.4-5.0); ALKALINE PHOSPHATASE 130 U/L (46-116); ASPARTATE AMINOTRANSFERASE 19 U/L (15-37); BILIRUBIN,TOTAL 0.7 mg/dL (0.1-1.0); LIPASE 39 U/L (73-393); TOTAL PROTEIN, SERUM 7.1 g/dL (6.4-8.2)
[2022-09-27] MEDS ORDERED: MAGNESIUM HYDROXIDE SUSPENSION 30 ML UDCUP PO ONE (18:15)
[2022-09-27 18:26] VITALS: BP 121/77
== END 2022-09-27 20:00 | disposition home or self-care (01) ==
LOC: EMS 15:33
DX: M54.9 Dorsalgia, unspecified (principal); K59.00 Constipation, unspecified; F17.210 Nicotine dependence, cigarettes, uncomplicated; F12.90 Cannabis use, unspecified, uncomplicated; F15.90 Other stimulant use, unspecified, uncomplicated; Z90.89 Acquired absence of other organs
CPT/HCPCS: 99283; 80053; 83690; 85025; 36415; 96372; J1885

== ENCOUNTER 2023-01-16 18:54 | Emergency (ER) | payer MEDICARE, OTHER ==
[~2023-01-16] VITALS: Ht 182.9 cm; Wt 72.7 kg
[2023-01-16 19:08] VITALS: BP 119/63; PULSE 100; RESP 20; TEMP 97.7
[2023-01-16 19:28] LABS: BASOPHILS % (AUTO) 0.5 % (0.0-2.0); EOSINOPHILS % (AUTO) 1.4 % (1.0-6.0); HEMATOCRIT 45.3 % (41-53); HEMOGLOBIN 15.1 g/dL (13.5-17.5); LYMPHOCYTES % (AUTO) 32.1 % (22.0-44.0); MEAN CORPUSCULAR HEMOGLOBIN 30.2 pg (26.0-34.0); MEAN CORPUSCULAR HGB CONC 33.3 G/dL (31.0-37.0); MEAN CORPUSCULAR VOLUME 91 fL (80-100); MONOCYTES # (AUTO) 0.4 K/uL (0.1-1.0); NEUTROPHILS # (AUTO) 3.7 K/uL (1.8-7.7); PLATELET COUNT (AUTO) 271 K/uL (150-450); RED CELL DISTRIBUTION WIDTH 13.5 % (11.5-14.5)
[2023-01-16 19:34] LABS: ANION GAP 12 mmol/L (8-16); CALCIUM, TOTAL 8.7 mg/dL (8.8-10.5); CARBON DIOXIDE 29 mmol/L (22-29); CHLORIDE 102 mmol/L (98-107); CREATININE 1.15 mg/dL (0.60-1.30); GLOMERULAR FILTR. RATE CALC > 60 mL/min (>60); GLUCOSE,RANDOM 119 mg/dL (70-110); POTASSIUM 3.9 mmol/L (3.5-5.1); SODIUM SERUM 143 mmol/L (136-145)
[2023-01-16 19:40] LABS: ALANINE AMINOTRANSFERASE 18 U/L (12-78); ALBUMIN 3.7 g/dL (3.4-5.0); ALKALINE PHOSPHATASE 100 U/L (46-116); ASPARTATE AMINOTRANSFERASE 14 U/L (15-37); BILIRUBIN,TOTAL 0.9 mg/dL (0.1-1.0); LIPASE 24 U/L (16-77); TOTAL PROTEIN, SERUM 6.5 g/dL (6.4-8.2)
[2023-01-16] MEDS ORDERED: DOCU-385 PO (19:49)
== END 2023-01-16 20:05 | disposition home or self-care (01) ==
LOC: EMS 18:54
DX: K59.00 Constipation, unspecified (principal); R10.9 Unspecified abdominal pain; F20.9 Schizophrenia, unspecified; F17.210 Nicotine dependence, cigarettes, uncomplicated; F12.90 Cannabis use, unspecified, uncomplicated; F15.90 Other stimulant use, unspecified, uncomplicated; Z90.89 Acquired absence of other organs
CPT/HCPCS: 80053; 83690; 85025; 99283

== ENCOUNTER 2023-03-26 16:32 | Emergency (ER) | payer OTHER ==
[~2023-03-26] VITALS: Ht 177.8 cm; Wt 80.5 kg
[~2023-03-26 16:32] MED LIST changes: +DOCU-385 PO
[2023-03-26 16:42] VITALS: BP 124/84; PULSE 84; RESP 18; TEMP 98.9
[2023-03-26 17:10] LABS: BASOPHILS % (AUTO) 0.8 % (0.0-2.0); EOSINOPHILS % (AUTO) 1.7 % (1.0-6.0); HEMATOCRIT 46.1 % (41-53); HEMOGLOBIN 15.5 g/dL (13.5-17.5); LYMPHOCYTES # (AUTO) 1.5 K/uL (1.0-4.8); LYMPHOCYTES % (AUTO) 28.2 % (22.0-44.0); MEAN CORPUSCULAR HEMOGLOBIN 30.8 pg (26.0-34.0); MEAN CORPUSCULAR HGB CONC 33.6 G/dL (31.0-37.0); MEAN CORPUSCULAR VOLUME 92 fL (80-100); MONOCYTES # (AUTO) 0.7 K/uL (0.1-1.0); NEUTROPHILS # (AUTO) 3.1 K/uL (1.8-7.7); NEUTROPHILS % (AUTO) 57.3 % (40.0-70.0); PLATELET COUNT (AUTO) 321 K/uL (150-450); RED BLOOD CELL COUNT(AUTO) 5.04 MIL/uL (4.50-5.90); RED CELL DISTRIBUTION WIDTH 13.6 % (11.5-14.5); WHITE BLOOD COUNT (AUTO) 5.4 K/uL (4.5-11.0)
[2023-03-26 17:20] LABS: ANION GAP 6 mmol/L (8-16); CALCIUM, TOTAL 8.8 mg/dL (8.8-10.5); CARBON DIOXIDE 32 mmol/L (22-29); CHLORIDE 103 mmol/L (98-107); CREATININE 0.94 mg/dL (0.60-1.30); GLOMERULAR FILTR. RATE CALC > 60 mL/min (>60); GLUCOSE,RANDOM 77 mg/dL (70-110); SODIUM SERUM 141 mmol/L (136-145); UREA NITROGEN, BLOOD 14 mg/dL (7-18)
[2023-03-26 17:27] LABS: ALANINE AMINOTRANSFERASE 28 U/L (12-78); ALKALINE PHOSPHATASE 96 U/L (46-116); ASPARTATE AMINOTRANSFERASE 18 U/L (15-37); BILIRUBIN,TOTAL 0.3 mg/dL (0.1-1.0); TOTAL PROTEIN, SERUM 7.7 g/dL (6.4-8.2)
== END 2023-03-26 20:46 | disposition left against medical advice (07) ==
LOC: EMS 16:34
DX: R55 Syncope and collapse (principal); Z53.21 Procedure and treatment not carried out due to patient leaving prior to being seen by health care provider
CPT/HCPCS: 80053; 85025; 93005; 99281